=== PATIENT | female | born 1955 | race Caucasian/White ===

== ENCOUNTER 2024-09-28 08:13 | Outpatient (CLI) | payer MEDICARE, BC | END 2024-09-28 08:14 | disposition home or self-care (01) | LOC: CSHWCC 08:13 | PROVIDERS: ATTEND Nurse Practitioner Family | DX: L59.9 Disorder of the skin and subcutaneous tissue related to radiation, unspecified (principal); K20.80 Other esophagitis without bleeding; Z01.818 Encounter for other preprocedural examination; J98.4 Other disorders of lung | CPT/HCPCS: 71046; 99213; G0463 ==

== ENCOUNTER 2024-09-28 10:08 | Outpatient (CLI) | payer MEDICARE, BC | END 2024-09-28 10:09 | disposition home or self-care (01) | LOC: CSHRAD 10:08 | PROVIDERS: ATTEND Nurse Practitioner Family | DX: Z01.818 Encounter for other preprocedural examination (principal); K20.80 Other esophagitis without bleeding; L59.9 Disorder of the skin and subcutaneous tissue related to radiation, unspecified; J98.4 Other disorders of lung | CPT/HCPCS: 71046 ==